=== PATIENT | female | born 1970 | race Caucasian/White ===

== ENCOUNTER 2017-08-06 18:12 | Inpatient (IN) | payer OTHER ==
[~2017-08-06] VITALS: Ht 167.6 cm; Wt 86.8 kg
[~2017-08-06 18:12] MED LIST: 'PARAFON FORTE500 M1 PO; ALBUTEROL0.09 MG/A2 IH; AMOXICILLIN500 MG PO; ANAPROX DS550 MG PO; APAP PO; BACTRIM DS 8001 TA1 PO; BIAXIN500 MG PO; BUTAL PO; CAFF PO; CATAFLAM50 MG PO; CIPROFLOXACIN500 MG PO; CRESTOR5 MG PO; CYCLOBENZAPRINE10 MG PO; EES400 MG PO; EFFEXOR-XR150 MG PO; ERYTHROMYCIN400 MG; FIORICET 325 MG1 TAB PO; FIORICET1 CAP PO; FLEXERIL10 MG PO; FLEXERIL5 MG PO; GLIPIZIDE10 M2 PO; GLUCOPHAGE500 MG PO; HYCODAN/HYDROMET5 ML PO; HYDROCODONE BIT1 T11 PO; IBU-8800 MG PO; KETOROLAC10 MG PO; LIPITOR20 MG PO; LISINOPRIL40 MG PO; LOMOTIL 0.025 M1 TA1 PO; LOVASTATIN20 MG PO; MACRODANTIN100 MG PO; MEDROL DOSEPAK4 MG PO; MELOXICAM15 MG PO; METFORMIN500 MG PO; MOBIC15 MG PO; MOTRIN800 MG PO; NEURONTIN100 MG PO; NORCO 10-325 T1 EACH PO; PHENERGAN25 M1 PO; PREDNISONE10 MG PO; PREDNISONE20 M1 PO; PROPANOLOL; PROPRANOLOL ER80 MG PO; PROPRANOLOL HCL80 M1 PO; PYRIDIUM200 MG PO; ROBITUSSIN AC 110 ML PO; ROBITUSSIN DM 105 ML PO; TOBRADEX 0.1%-0.5 ML OPH; TRAMADOL HCL50 MG PO; VICODIN 5/500 505 MG PO; VICODIN 500 MG-1 TAB PO; XANAX0.5 MG PO; ZESTRIL40 MG PO; ZITHROMAX Z PA250 MG PO; ZITHROMAX500 MG PO
[2017-08-06 18:14] VITALS: BP 112/62
[2017-08-06] MEDS ORDERED: MELATONIN2.5 M1 PO (18:22)
[2017-08-06] MEDS ORDERED: FIORINAL 50-321 EACH PO (18:22)
[2017-08-06] MEDS ORDERED: ASPIRIN81 M1 PO (18:24)
[2017-08-06] MEDS ORDERED: PROAIR HFA8.5 GM INH (18:24)
[2017-08-06] MEDS ORDERED: METFORMIN1000 MG PO (18:24)
[2017-08-06] MEDS ORDERED: ZESTRIL40 MG PO (18:25)
[2017-08-06] MEDS ORDERED: VITAMIN D-32000 UNIT PO (18:25)
[2017-08-06] MEDS ORDERED: LOVASTATIN40 MG PO (18:25)
[2017-08-06] MEDS ORDERED: GLUCOTROL10 MG PO (18:26)
[2017-08-06] MEDS ORDERED: CETIRIZINE10 MG PO (18:26)
[2017-08-06] MEDS ORDERED: MICROZIDE12.5 M1 PO (18:26)
[2017-08-06] MEDS ORDERED: PROPRANOLOL HCL80 M1 PO (18:26)
[2017-08-06] MEDS ORDERED: VENLAFAXINE150 MG PO (18:27)
[2017-08-06] MEDS ORDERED: CYCLOBENZAPRINE10 MG PO (18:27)
[2017-08-06] MEDS ORDERED: GABAPENTIN600 MG PO (18:28)
[2017-08-06] MEDS ORDERED: NEURONTIN300 MG PO (18:28)
[2017-08-06 18:34] LABS: BASO % 0.6 % (0.0-1.0); EOS # 0.1 10*3/uL (0.0-0.4); EOS % 2.3 % (1.0-4.0); HEMATOCRIT 31.8 % (37.0-47.0); HEMOGLOBIN 10.6 g/dl (12.0-16.0); LYMPH # 2.1 10*3/uL (1.3-4.4); LYMPH % 34.5 % (27.0-41.0); MEAN CELL VOLUME 94.9 fl (81.0-99.0); MEAN CORPUSCULAR HGB 31.6 pg (27.0-31.0); MEAN CORPUSCULAR HGB CONC 33.3 g/dl (33.0-37.0); MEAN PLATELET VOLUME 10.1 fl (9.6-12.3); MONO # 0.7 10*3/uL (0.1-1.0); MONO % 11.1 % (3.0-9.0); NEUT # 3.2 10*3/uL (2.3-7.9); PLATELET COUNT AUTOMATED 217 10*3/uL (130-400); RED BLOOD COUNT 3.35 10*6/uL (4.10-5.10); RED CELL DISTRI WIDTH 12.6 % (0-14.5); WHITE BLOOD COUNT 6.2 10*3/uL (4.8-10.8)
[2017-08-06 18:54] LABS: ALBUMIN 3.1 gm/dl (3.1-4.5); ALKALINE PHOSPHATASE 62 U/L (45-117); BUN 22 mg/dl (7-24); CHLORIDE 95 mmol/L (98-107); CREATININE 1.47 mg/dL (0.55-1.02); LIPASE 224 U/L (73-393); POTASSIUM 4.2 mmol/L (3.5-5.1); SGOT/AST 14 IU/L (3-35); SGPT/ALT 22 U/L (12-78); SODIUM 131 mmol/L (136-145); TOTAL PROTEIN 6.6 gm/dL (6.4-8.2)
[2017-08-06 18:58] LABS: TROPONIN I < 0.015 ng/ml (<0.045)
[2017-08-06 19:01] VITALS: BP 90/47
[2017-08-06 19:31] LABS: BILIRUBIN NEGATIVE (NEGATIVE); BLOOD TRACE-INTACT (NEGATIVE); CLARITY SL CLOUDY (CLEAR); COLOR YELLOW (YELLOW); GLUCOSE 3+ (NEGATIVE); KETONE NEGATIVE (NEGATIVE); LEUKO ESTERASE NEGATIVE (NEGATIVE); NITRITE POSITIVE (NEGATIVE); PH 5.5 (5.0-9.0); SPECIFIC GRAVITY 1.015 (1.005-1.030); UROBILINOGEN 0.2 E.U./dl (0.2-1.0)
[2017-08-06 19:45] VITALS: BP 118/77
[2017-08-06 19:50] LABS: BACTERIA 2+; EPITHELIAL CELLS TNTC; WBC 41-50 wbc/hpf (0-5)
[2017-08-06 20:00] VITALS: BP 116/81
[2017-08-07] VITALS: BP 126/76
[2017-08-07 04:00] VITALS: BP 137/88
[2017-08-07 06:01] LABS: ALBUMIN 2.7 gm/dl (3.1-4.5); ALKALINE PHOSPHATASE 56 U/L (45-117); BASO # 0.1 10*3/uL (0.0-0.1); BASO % 0.8 % (0.0-1.0); BUN 20 mg/dl (7-24); CHLORIDE 104 mmol/L (98-107); CREATININE 1.08 mg/dL (0.55-1.02); EOS # 0.2 10*3/uL (0.0-0.4); EOS % 2.9 % (1.0-4.0); HEMATOCRIT 31.7 % (37.0-47.0); HEMOGLOBIN 10.7 g/dl (12.0-16.0); LYMPH % 45.1 % (27.0-41.0); MEAN CELL VOLUME 95.2 fl (81.0-99.0); MEAN CORPUSCULAR HGB 32.1 pg (27.0-31.0); MEAN CORPUSCULAR HGB CONC 33.8 g/dl (33.0-37.0); MEAN PLATELET VOLUME 10.5 fl (9.6-12.3); MONO # 0.7 10*3/uL (0.1-1.0); NEUT # 2.7 10*3/uL (2.3-7.9); NEUT % 40.9 % (47.0-73.0); PHOSPHOROUS 3.7 mg/dL (2.5-4.9); PLATELET COUNT AUTOMATED 208 10*3/uL (130-400); POTASSIUM 4.2 mmol/L (3.5-5.1); RED BLOOD COUNT 3.33 10*6/uL (4.10-5.10); RED CELL DISTRI WIDTH 12.5 % (0-14.5); SGOT/AST 14 IU/L (3-35); SGPT/ALT 22 U/L (12-78); SODIUM 137 mmol/L (136-145); TOTAL PROTEIN 5.8 gm/dL (6.4-8.2); WHITE BLOOD COUNT 6.6 10*3/uL (4.8-10.8)
[2017-08-07 06:16] LABS: ACT PARTIAL THROMBO TIME 21.2 SECONDS (20.8-31.5); INTERNATIONAL NORM RATIO 0.9 (2.0-3.5)
[2017-08-07 08:00] VITALS: BP 126/81
[2017-08-07 12:00] VITALS: BP 134/90
[2017-08-07 16:00] VITALS: BP 138/87
[2017-08-07 20:00] VITALS: BP 127/72
[2017-08-08] VITALS: BP 126/70
[2017-08-08 05:30] LABS: BUN 15 mg/dl (7-24); CHLORIDE 102 mmol/L (98-107); CREATININE 0.85 mg/dL (0.55-1.02); PHOSPHOROUS 3.3 mg/dL (2.5-4.9); POTASSIUM 4.3 mmol/L (3.5-5.1); SODIUM 136 mmol/L (136-145)
[2017-08-08 06:10] LABS: BASO % 0.7 % (0.0-1.0); EOS # 0.2 10*3/uL (0.0-0.4); EOS % 3.1 % (1.0-4.0); HEMATOCRIT 32.9 % (37.0-47.0); HEMOGLOBIN 11.1 g/dl (12.0-16.0); LYMPH # 2.3 10*3/uL (1.3-4.4); LYMPH % 39.7 % (27.0-41.0); MEAN CORPUSCULAR HGB 31.7 pg (27.0-31.0); MEAN CORPUSCULAR HGB CONC 33.7 g/dl (33.0-37.0); MEAN PLATELET VOLUME 10.7 fl (9.6-12.3); MONO # 0.5 10*3/uL (0.1-1.0); MONO % 9.1 % (3.0-9.0); NEUT # 2.7 10*3/uL (2.3-7.9); NEUT % 47.1 % (47.0-73.0); PLATELET COUNT AUTOMATED 222 10*3/uL (130-400); RED CELL DISTRI WIDTH 12.3 % (0-14.5); WHITE BLOOD COUNT 5.7 10*3/uL (4.8-10.8)
[2017-08-08 08:00] VITALS: BP 138/92
[2017-08-08 12:00] VITALS: BP 145/90
[2017-08-08] MEDS ORDERED: Insulin Lispro, Reco SC (15:12)
[2017-08-08] MEDS ORDERED: NEEDLES1 EAC4 MC (15:12)
[2017-08-08] MEDS ORDERED: LEVEMIR100 UNIT/1 SC (15:12)
[2017-08-08] MEDS ORDERED: [UNRECOGNIZED DRUG - OTHER] MC (15:12)
[2017-08-08] MEDS ORDERED: AUGMENTIN 875875 MG PO (15:44)
[2017-08-08 16:00] VITALS: BP 154/94
== END 2017-08-08 16:26 | disposition home or self-care (01) | DRG 314 ==
LOC: ED 18:12 → ICCU 19:17 → EDHOLD 19:17 → ICCU 19:18 → 4E 08-07 14:38
PROVIDERS: Internal Medicine; Internal Medicine Nephrology; Nurse Practitioner Family
DX: I95.9 Hypotension, unspecified (principal); N17.0 Acute kidney failure with tubular necrosis; E43 Unspecified severe protein-calorie malnutrition; E87.8 Other disorders of electrolyte and fluid balance, not elsewhere classified; E86.0 Dehydration; E87.1 Hypo-osmolality and hyponatremia; N39.0 Urinary tract infection, site not specified; E11.65 Type 2 diabetes mellitus with hyperglycemia; E66.09 Other obesity due to excess calories; G25.81 Restless legs syndrome; M79.2 Neuralgia and neuritis, unspecified; K21.9 Gastro-esophageal reflux disease without esophagitis; E78.5 Hyperlipidemia, unspecified; I10 Essential (primary) hypertension; D64.9 Anemia, unspecified; D72.821 Monocytosis (symptomatic); M25.519 Pain in unspecified shoulder; Z90.710 Acquired absence of both cervix and uterus; Z83.3 Family history of diabetes mellitus; Z68.30 Body mass index [BMI] 30.0-30.9, adult; Z82.49 Family history of ischemic heart disease and other diseases of the circulatory system; Z84.89 Family history of other specified conditions; Z88.8 Allergy status to other drugs, medicaments and biological substances; Z88.1 Allergy status to other antibiotic agents; Z91.040 Latex allergy status; Z79.82 Long term (current) use of aspirin; Z79.899 Other long term (current) drug therapy; Z82.5 Family history of asthma and other chronic lower respiratory diseases

== ENCOUNTER → 2018-01-19 | Outpatient (CLI) | payer OTHER ==
[~2018-01-19] MED LIST changes: +ASPIRIN81 M1 PO; +AUGMENTIN 875875 MG PO; +CETIRIZINE10 MG PO; +FIORINAL 50-321 EACH PO; +GABAPENTIN600 MG PO; +GLUCOTROL10 MG PO; +Insulin Lispro, Reco SC; +LEVEMIR100 UNIT/1 SC; +LOVASTATIN40 MG PO; +MELATONIN2.5 M1 PO; +METFORMIN1000 MG PO; +MICROZIDE12.5 M1 PO; +NEEDLES1 EAC4 MC; +NEURONTIN300 MG PO; +PROAIR HFA8.5 GM INH; +VENLAFAXINE150 MG PO; +VITAMIN D-32000 UNIT PO; +[UNRECOGNIZED DRUG - OTHER] MC
== END | disposition home or self-care (01) ==
LOC: RAD 18:02
DX: M25.562 Pain in left knee (principal); M43.22 Fusion of spine, cervical region; Z98.1 Arthrodesis status

== ENCOUNTER 2018-05-07 10:40 | Emergency (ER) | payer OTHER ==
[~2018-05-07] VITALS: Ht 165.1 cm; Wt 88.9 kg
[2018-05-07 11:06] LABS: BILIRUBIN NEGATIVE (NEGATIVE); BLOOD 2+ (NEGATIVE); CLARITY CLOUDY (CLEAR); COLOR YELLOW (YELLOW); GLUCOSE TRACE (NEGATIVE); KETONE NEGATIVE (NEGATIVE); LEUKO ESTERASE 1+ (NEGATIVE); NITRITE POSITIVE (NEGATIVE); SPECIFIC GRAVITY 1.025 (1.005-1.030)
[2018-05-07 11:18] LABS: BASO % 0.4 % (0.0-1.0); EOS # 0.2 10*3/uL (0.0-0.4); EOS % 2.9 % (1.0-4.0); HEMATOCRIT 36.5 % (37.0-47.0); HEMOGLOBIN 12.5 g/dl (12.0-16.0); LYMPH % 28.6 % (27.0-41.0); MEAN CELL VOLUME 94.3 fl (81.0-99.0); MEAN CORPUSCULAR HGB 32.3 pg (27.0-31.0); MEAN CORPUSCULAR HGB CONC 34.2 g/dl (33.0-37.0); MEAN PLATELET VOLUME 9.6 fl (9.6-12.3); MONO # 0.6 10*3/uL (0.1-1.0); MONO % 8.1 % (3.0-9.0); NEUT # 4.1 10*3/uL (2.3-7.9); NEUT % 59.6 % (47.0-73.0); PLATELET COUNT AUTOMATED 261 10*3/uL (130-400); RED BLOOD COUNT 3.87 10*6/uL (4.10-5.10); RED CELL DISTRI WIDTH 12.1 % (0-14.5); WHITE BLOOD COUNT 6.8 10*3/uL (4.8-10.8)
[2018-05-07 11:24] LABS: WBC TNTC wbc/hpf (0-5)
[2018-05-07 11:25] LABS: EPITHELIAL CELLS TNTC
[2018-05-07 11:34] LABS: ALBUMIN 3.2 gm/dl (3.1-4.5); ALKALINE PHOSPHATASE 93 U/L (45-117); BUN 14 mg/dl (7-24); CHLORIDE 102 mmol/L (98-107); CREATININE 0.86 mg/dL (0.55-1.02); POTASSIUM 3.9 mmol/L (3.5-5.1); SGOT/AST 10 IU/L (3-35); SGPT/ALT 21 U/L (12-78); SODIUM 137 mmol/L (136-145); TOTAL PROTEIN 6.9 gm/dL (6.4-8.2)
[2018-05-07 13:09] VITALS: BP 169/83
[2018-05-07] MEDS ORDERED: CEPHALEXIN500 M1 PO (14:13)
== END 2018-05-07 14:20 | disposition home or self-care (01) ==
LOC: ED 10:40
PROVIDERS: Nurse Practitioner Family
DX: N39.0 Urinary tract infection, site not specified (principal); Z91.048 Other nonmedicinal substance allergy status; Z88.1 Allergy status to other antibiotic agents; Z88.8 Allergy status to other drugs, medicaments and biological substances; Z79.4 Long term (current) use of insulin; Z79.2 Long term (current) use of antibiotics; Z79.899 Other long term (current) drug therapy; Z79.82 Long term (current) use of aspirin; Z90.710 Acquired absence of both cervix and uterus

== ENCOUNTER 2018-08-23 20:11 | Emergency (ER) | payer OTHER ==
[~2018-08-23] VITALS: Ht 162.5 cm; Wt 87.1 kg
[2018-08-23 20:11] VITALS: BP 168/95
[~2018-08-23 20:11] MED LIST changes: +CEPHALEXIN500 M1 PO
[2018-08-23 21:03] LABS: BILIRUBIN NEGATIVE (NEGATIVE); BLOOD 1+ (NEGATIVE); CLARITY SL CLOUDY (CLEAR); COLOR YELLOW (YELLOW); GLUCOSE NEGATIVE (NEGATIVE); KETONE TRACE (NEGATIVE); LEUKO ESTERASE 1+ (NEGATIVE); NITRITE POSITIVE (NEGATIVE); UROBILINOGEN 0.2 E.U./dl (0.2-1.0)
[2018-08-23 21:09] LABS: BASO % 0.5 % (0.0-1.0); EOS # 0.3 10*3/uL (0.0-0.4); EOS % 3.8 % (1.0-4.0); HEMATOCRIT 38.6 % (37.0-47.0); HEMOGLOBIN 13.1 g/dl (12.0-16.0); LYMPH # 1.8 10*3/uL (1.3-4.4); LYMPH % 21.6 % (27.0-41.0); MEAN CORPUSCULAR HGB 32.9 pg (27.0-31.0); MEAN CORPUSCULAR HGB CONC 33.9 g/dl (33.0-37.0); MEAN PLATELET VOLUME 9.6 fl (9.6-12.3); MONO # 0.7 10*3/uL (0.1-1.0); MONO % 7.9 % (3.0-9.0); NEUT # 5.6 10*3/uL (2.3-7.9); NEUT % 65.7 % (47.0-73.0); PLATELET COUNT AUTOMATED 262 10*3/uL (130-400); RED BLOOD COUNT 3.98 10*6/uL (4.10-5.10); RED CELL DISTRI WIDTH 12.6 % (0-14.5); WHITE BLOOD COUNT 8.4 10*3/uL (4.8-10.8)
[2018-08-23 21:10] LABS: BACTERIA 3+; EPITHELIAL CELLS 31-40; WBC 31-40 wbc/hpf (0-5)
[2018-08-23 21:20] LABS: ACT PARTIAL THROMBO TIME 21.1 SECONDS (20.8-31.5); INTERNATIONAL NORM RATIO 0.9 (2.0-3.5)
[2018-08-23 21:23] LABS: ALBUMIN 3.6 gm/dl (3.1-4.5); ALKALINE PHOSPHATASE 91 U/L (45-117); BUN 10 mg/dl (7-24); CHLORIDE 104 mmol/L (98-107); CREATININE 0.79 mg/dL (0.55-1.02); LIPASE 115 U/L (73-393); POTASSIUM 3.7 mmol/L (3.5-5.1); SGOT/AST 39 IU/L (3-35); SGPT/ALT 50 U/L (12-78); SODIUM 137 mmol/L (136-145); TOTAL PROTEIN 7.7 gm/dL (6.4-8.2)
[2018-08-23] MEDS ORDERED: CEPHALEXIN500 M1 PO (21:29)
[2018-08-23] MEDS ORDERED: ZOFRAN4 MG PO (21:29)
[2018-08-29] MEDS ORDERED: MACROBID100 M1 PO (20:52)
[2018-08-29] MEDS ORDERED: ULTRAM50 MG PO (20:52)
== END 2018-08-23 23:37 | disposition home or self-care (01) ==
LOC: ED 20:11
PROVIDERS: Nurse Practitioner Family
DX: N39.0 Urinary tract infection, site not specified (principal); R19.7 Diarrhea, unspecified; E11.9 Type 2 diabetes mellitus without complications; E78.5 Hyperlipidemia, unspecified; I10 Essential (primary) hypertension; Z91.048 Other nonmedicinal substance allergy status; Z88.1 Allergy status to other antibiotic agents; Z88.8 Allergy status to other drugs, medicaments and biological substances; Z79.2 Long term (current) use of antibiotics; Z79.4 Long term (current) use of insulin; Z79.82 Long term (current) use of aspirin; Z79.899 Other long term (current) drug therapy; Z90.710 Acquired absence of both cervix and uterus

== ENCOUNTER 2019-03-09 00:14 | Emergency (ER) | payer OTHER ==
[~2019-03-09] VITALS: Ht 165.1 cm; Wt 83.9 kg
[2019-03-09 00:14] VITALS: BP 136/78
[~2019-03-09 00:14] MED LIST changes: +MACROBID100 M1 PO; +ULTRAM50 MG PO; +ZOFRAN4 MG PO
[2019-03-09] MEDS ORDERED: CELEBREX50 MG PO (00:30)
== END 2019-03-09 01:53 | disposition home or self-care (01) ==
LOC: ED 00:14
DX: M25.562 Pain in left knee (principal); F17.200 Nicotine dependence, unspecified, uncomplicated; Z91.048 Other nonmedicinal substance allergy status; Z88.1 Allergy status to other antibiotic agents; Z79.4 Long term (current) use of insulin; Z79.82 Long term (current) use of aspirin; Z79.899 Other long term (current) drug therapy; W23.0XXA Caught, crushed, jammed, or pinched between moving objects, initial encounter; Y93.89 Activity, other specified; Y92.89 Other specified places as the place of occurrence of the external cause; Y99.8 Other external cause status

== ENCOUNTER 2019-04-29 12:06 | Emergency (ER) | payer OTHER ==
[~2019-04-29] VITALS: Ht 165.1 cm; Wt 86.2 kg
[2019-04-29 12:06] VITALS: BP 141/90
== END 2019-04-29 14:56 | disposition home or self-care (01) ==
LOC: ED 12:06
DX: G43.909 Migraine, unspecified, not intractable, without status migrainosus (principal); Z91.048 Other nonmedicinal substance allergy status; Z88.1 Allergy status to other antibiotic agents; Z88.8 Allergy status to other drugs, medicaments and biological substances; Z79.899 Other long term (current) drug therapy; Z79.4 Long term (current) use of insulin; Z79.82 Long term (current) use of aspirin

== ENCOUNTER → 2019-04-29 | Outpatient (CLI) | payer OTHER ==
[~2019-04-29] MED LIST changes: +CELEBREX50 MG PO
== END | disposition home or self-care (01) ==
LOC: ORTHO 01:01
DX: M25.562 Pain in left knee (principal)

== ENCOUNTER → 2019-12-02 | Outpatient (CLI) | payer OTHER | END | disposition home or self-care (01) | LOC: COVID19 00:19 | DX: Z20.828 Contact with and (suspected) exposure to other viral communicable diseases (principal) ==

== ENCOUNTER 2020-03-26 15:33 | Emergency (ER) | payer OTHER ==
[~2020-03-26] VITALS: Ht 165.1 cm; Wt 90.7 kg
[2020-03-26 16:16] VITALS: BP 110/95
== END 2020-03-26 17:14 | disposition home or self-care (01) ==
LOC: ED 15:33
DX: R19.7 Diarrhea, unspecified (principal); E11.9 Type 2 diabetes mellitus without complications; K21.9 Gastro-esophageal reflux disease without esophagitis; E78.5 Hyperlipidemia, unspecified; I10 Essential (primary) hypertension; G43.909 Migraine, unspecified, not intractable, without status migrainosus; Z88.8 Allergy status to other drugs, medicaments and biological substances; Z79.899 Other long term (current) drug therapy; Z79.82 Long term (current) use of aspirin; Z90.710 Acquired absence of both cervix and uterus

== ENCOUNTER → 2020-04-01 | Outpatient (CLI) | payer OTHER ==
[2020-04-01 16:17] LABS: BASO # 0.1 10*3/uL (0.0-0.1); BASO % 0.6 % (0.0-1.0); EOS # 0.5 10*3/uL (0.0-0.4); EOS % 5.2 % (1.0-4.0); HEMATOCRIT 38.6 % (37.0-47.0); LYMPH % 19.8 % (27.0-41.0); MEAN CORPUSCULAR HGB 31.9 pg (27.0-31.0); MEAN CORPUSCULAR HGB CONC 32.9 g/dl (33.0-37.0); MEAN PLATELET VOLUME 9.6 fl (9.6-12.3); MONO # 0.7 10*3/uL (0.1-1.0); MONO % 6.7 % (3.0-9.0); NEUT # 6.9 10*3/uL (2.3-7.9); NEUT % 67.3 % (47.0-73.0); PLATELET COUNT AUTOMATED 272 10*3/uL (130-400); RED BLOOD COUNT 3.98 10*6/uL (4.10-5.10); RED CELL DISTRI WIDTH 12.3 % (0-14.5); WHITE BLOOD COUNT 10.3 10*3/uL (4.8-10.8)
[2020-04-02 15:08] LABS: t-TRANSGLUTAMINASE (tTG) IGA <2 U/mL (0-3)
== END | disposition home or self-care (01) ==
LOC: LAB 16:01
PROVIDERS: ATTEND Family Medicine
DX: R19.7 Diarrhea, unspecified (principal)

== ENCOUNTER → 2020-04-02 | Outpatient (CLI) | payer OTHER | END | disposition home or self-care (01) | LOC: LAB 14:58 | PROVIDERS: ATTEND Family Medicine | DX: R19.7 Diarrhea, unspecified (principal) ==

== ENCOUNTER → 2020-06-26 | Outpatient (CLI) | payer OTHER ==
[~2020-06-26] MED LIST changes: +HYDROCODON-ACE1 EACH PO
[2020-06-26 11:00] LABS: BILIRUBIN Negative (Negative); BLOOD Trace-Lysed (Negative); CLARITY Cloudy (Clear); COLOR Yellow (Yellow); GLUCOSE 3+ (Negative); KETONE Trace (Negative); LEUKO ESTERASE Trace (Negative); NITRITE Positive (Negative); SPECIFIC GRAVITY >= 1.030 (1.001-1.030)
[2020-06-26 12:17] LABS: BACTERIA 3+
== END | disposition home or self-care (01) ==
LOC: LAB 10:24
PROVIDERS: ATTEND Family Medicine
DX: R30.0 Dysuria (principal)

== ENCOUNTER 2020-08-18 22:46 | Emergency (ER) | payer OTHER ==
[~2020-08-18] VITALS: Wt 84.8 kg
[~2020-08-18 22:46] MED LIST changes: -HYDROCODON-ACE1 EACH PO
[2020-08-18 23:08] VITALS: BP 146/88
[2020-08-19] MEDS ORDERED: HYDROCODON-ACE1 EACH PO (00:05)
== END 2020-08-19 00:53 | disposition home or self-care (01) ==
LOC: ED 22:46
DX: M25.511 Pain in right shoulder (principal); F17.200 Nicotine dependence, unspecified, uncomplicated; Z88.8 Allergy status to other drugs, medicaments and biological substances; Z79.899 Other long term (current) drug therapy; Z79.4 Long term (current) use of insulin; Z79.82 Long term (current) use of aspirin; Z98.890 Other specified postprocedural states

== ENCOUNTER 2021-04-03 16:17 | Emergency (ER) | payer OTHER ==
[~2021-04-03] VITALS: Wt 88.5 kg
[~2021-04-03 16:17] MED LIST changes: +HYDROCODON-ACE1 EACH PO
[2021-04-03 16:34] VITALS: BP 121/90
[2021-04-03 17:14] LABS: BASO % 0.5 % (0.0-1.0); EOS # 0.1 10*3/uL (0.0-0.4); EOS % 3.1 % (1.0-4.0); HEMATOCRIT 39.2 % (37.0-47.0); LYMPH # 1.8 10*3/uL (1.3-4.4); LYMPH % 41.5 % (27.0-41.0); MEAN CELL VOLUME 93.6 fl (81.0-99.0); MEAN CORPUSCULAR HGB 31.5 pg (27.0-31.0); MEAN CORPUSCULAR HGB CONC 33.7 g/dl (33.0-37.0); MEAN PLATELET VOLUME 9.4 fl (9.6-12.3); MONO # 0.5 10*3/uL (0.1-1.0); NEUT # 1.8 10*3/uL (2.3-7.9); NEUT % 42.7 % (47.0-73.0); PLATELET COUNT AUTOMATED 220 10*3/uL (130-400); RED BLOOD COUNT 4.19 10*6/uL (4.10-5.10); RED CELL DISTRI WIDTH 11.9 % (0-14.5); WHITE BLOOD COUNT 4.2 10*3/uL (4.8-10.8)
[2021-04-03 17:23] LABS: BILIRUBIN 1+ (Negative); BLOOD 3+ (Negative); CLARITY Turbid (Clear); COLOR Dark Yellow (Yellow); GLUCOSE 3+ (Negative); KETONE Negative (Negative); LEUKO ESTERASE Trace (Negative); NITRITE Positive (Negative); SPECIFIC GRAVITY >= 1.030 (1.001-1.030)
[2021-04-03 17:29] LABS: ALBUMIN 3.1 gm/dl (3.1-4.5); ALKALINE PHOSPHATASE 92 U/L (45-117); BUN 14 mg/dl (7-24); CHLORIDE 104 mmol/L (98-107); CREATININE 0.85 mg/dL (0.55-1.02); SGOT/AST 13 IU/L (3-35); SGPT/ALT 24 U/L (12-78); SODIUM 136 mmol/L (136-145); TOTAL PROTEIN 7.4 gm/dL (6.4-8.2)
[2021-04-03 17:33] LABS: BACTERIA 2+; RBC TNTC rbc/hpf (0-2); WBC TNTC wbc/hpf (0-5)
[2021-04-03] MEDS ORDERED: CIPROFLOX-DEXA7.5 ML OT (17:43)
[2021-04-03] MEDS ORDERED: MACROBID100 M1 PO (17:43)
== END 2021-04-03 18:00 | disposition home or self-care (01) ==
LOC: ED 16:17
PROVIDERS: Student in an Organized Health Care Education/Training Program
DX: N39.0 Urinary tract infection, site not specified (principal); R09.81 Nasal congestion; Z88.1 Allergy status to other antibiotic agents; Z79.899 Other long term (current) drug therapy; Z79.82 Long term (current) use of aspirin

== ENCOUNTER → 2021-07-13 | Outpatient (CLI) | payer OTHER ==
[~2021-07-13] MED LIST changes: +CIPROFLOX-DEXA7.5 ML OT
== END | disposition home or self-care (01) ==
LOC: LAB 12:29
PROVIDERS: ATTEND Family Medicine
DX: R35.0 Frequency of micturition (principal)